=== PATIENT | female | born 1995 | race Caucasian/White ===

== ENCOUNTER 2017-10-16 16:10 | Emergency (ER) | payer OTHER ==
[~2017-10-16] VITALS: Ht 165.1 cm; Wt 60.1 kg
[2017-10-16 16:15] VITALS: TEMP 36.3; Ht 165.1 cm; Wt 60.1 kg
[2017-10-16] MEDS ORDERED: ONDANSETRON INJ 2 MG/ML 2 ML VIAL IV STA ×2 (17:28→19:34)
[2017-10-16] MEDS ORDERED: SODIUM CHLORIDE 0.9% 1000ML 2,000 ML IV STA (17:28)
[2017-10-16] MEDS ORDERED: PHEN500T PO (17:32)
[2017-10-16 18:11] LABS: BASO % 0.2 %; BASO ABS # 0.02 K/uL (0-0.2); EOS % 0.1 %; EOS ABS # 0.01 K/uL (0-0.5); HEMATOCRIT 42.7 % (37-47); HEMOGLOBIN 14.9 g/dL (12.0-16.0); IG# 0.07 K/uL (0.00-0.02); LYMPH % 9.7 %; LYMPH ABS # 1.25 K/uL (1.2-3.4); MEAN CELL VOLUME 86.3 fL (80-100); MEAN CORPUSCULAR HEMOGLOBIN 30.1 pg (25-34); MEAN CORPUSCULAR HGB CONC 34.9 g/dl (32-36); MONO % 4.2 %; MONO ABS # 0.54 K/uL (0.11-0.59); NEUT % 85.3 %; NEUT ABS # 11.02 K/uL (1.4-6.5); PLATELET COUNT 250 K/uL (130-400); RED CELL DISTRIBUTION WIDTH CV 12.4 % (11.5-14.5); WHITE BLOOD COUNT 12.91 K/uL (4.8-10.8)
[2017-10-16 18:37] LABS: ALBUMIN 4.8 gm/dl (3.4-5.0); ALT/SGPT 32 U/L (12-78); BLOOD UREA NITROGEN 11 mg/dl (7-18); CALCIUM 9.6 mg/dl (8.5-10.1); CARBON DIOXIDE 26 mmol/L (21-32); CREATININE 0.73 mg/dl (0.60-1.20); GLUCOSE 101 mg/dl (70-99); LIPASE 88 U/L (73-393); POTASSIUM 3.2 mmol/L (3.5-5.1); SODIUM 137 mmol/L (136-145)
[2017-10-16 18:40] LABS: ALKALINE PHOSPHATASE 59 U/L (45-117); AST/SGOT 18 U/L (15-37); TOTAL PROTEIN 8.6 gm/dl (6.4-8.2)
--- NOTE | 2017-10-16 18:40 | DIAGNOSTIC IMAGING REPORT ---
ABDOMEN 2VIEW W/PA CHEST RTN CLINICAL HISTORY: vomiting COMPARISON STUDY: No previous studies for comparison. FINDINGS: The erect chest reveals no free air. The heart is normal in size. There is no focal pulmonary consolidation. Erect and supine views the abdomen reveal borderline dilated proximal jejunal loops measuring up to 34 mm in diameter. IMPRESSION: Nonspecific bowel gas pattern with a borderline dilated left upper quadrant jejunal loop measuring 34 mm in diameter. No evidence of free air. Electronically signed by: Davide Martínez M.D. 10/16/2017 6:39 PM Dictated Date/Time: 10/16/2017 6:37 PM
--- NOTE | 2017-10-16 19:27 | DIAGNOSTIC IMAGING REPORT ---
CT SCAN OF THE ABDOMEN AND PELVIS WITHOUT CONTRAST CLINICAL HISTORY: Vomiting. Dilated small bowel. COMPARISON STUDY: Conventional radiographic study dated 10/16/2017 TECHNIQUE: CT scan of the abdomen and pelvis was performed from the lung bases to the proximal femurs. Images are reviewed in the axial, sagittal, and coronal planes. IV contrast was not administered for this examination. A dose lowering technique was utilized adhering to the principles of ALARA. CT DOSE: 274.73 mGy.cm FINDINGS: Lower chest: The heart is normal in size and configuration, without pericardial effusion. The lung bases and pleural spaces are clear. Liver: The unenhanced liver is normal in size, contour, and attenuation. There is no intrahepatic biliary ductal dilatation. Gallbladder: Unremarkable. Spleen: Normal in size and attenuation. Pancreas: Unremarkable. Adrenal glands: Unremarkable. Kidneys: No renal, ureteral, or bladder calculi are visualized. Bowel: There are no transition zones indicate bowel obstruction. There is no acute diverticulitis. The appendix appears normal. Proximal jejunal loops are at the upper limits of normal in diameter. Peritoneum: There is no intraperitoneal free air or abdominal ascites. Vasculature: The abdominal aorta is normal in course and caliber. Adenopathy: None. Pelvic viscera: The bladder, and pelvic viscera are unremarkable. Skeletal structures: No destructive osseous lesions are seen. IMPRESSION: 1. Proximal jejunal loops the upper limits of normal in diameter. This could indicate a mild focal ileus. 2. No current evidence of bowel obstruction. No evidence of free air 3. Normal appendix. No evidence of acute diverticulitis. 4. No renal, ureteral, or bladder calculi identified Electronically signed by: Davide Martínez M.D. 10/16/2017 7:25 PM Dictated Date/Time: 10/16/2017 7:23 PM
[2017-10-16] MEDS ORDERED: ONDA4TAB46 PO (19:37)
[2017-10-16] MEDS ORDERED: ONDANSETRON HOME PACK 4MG OD TAB PO ONE (19:45)
[2017-10-16 20:09] VITALS: BP 120/68; PULSE 91; O2SAT 99
--- NOTE | 2017-10-16 20:14 | EMERGENCY ROOM VISIT NOTE ---
History Report prepared by Anel: Ashley Huerta Under the Supervision of: Saúl MorleyO. First contact with patient: 17:18 Chief Complaint: NAUSEA Stated Complaint: TOOK DIET PILL, NOW SICK TO STOMACH, ANXIOUS Nursing Triage Summary: Patient took a diet pill called Phenalean this afternoon and now can not stop vomitted. History of Present Illness The patient is a 21 year old female who presents to the Emergency Room with complaints of persistent nausea that began earlier today. The patient states that she took a dietary pill (Phenalean), which her boyfriend bought at a pharmacy. She notes that patient contained high amounts of caffeine and that any time she has caffeine she feels sick. The patient has been experiencing shortness of breath, which began about 30 minutes after she took the pill. She notes her last normal menstrual period was 2 weeks ago and her last bowel movement was 2 days ago. Shortness of breath is worsened with the vomiting. Pt denies headache, change in vision, fevers, chest pain, diarrhea, pain with urination, and melena. Patient denies diabetes, hypertension, hyperlipidemia, CAD, history of sudden at a young age, and smoking. Patient denies swelling of calves, recent trips, history of immobilization or recent surgery, prior history of DVT, hemoptysis, history of malignancy, history of smoking, or control/estrogen use. Source of History: patient Onset: today Position: other (global) Quality: other (nausea) Timing: other (persistent) Associated Symptoms: + SOB Review of Systems See HPI for pertinent positives & negatives. A total of 10 systems reviewed and were otherwise negative. Family History Patient reports no known family medical history. Social History Smoking Status: Never Smoker Smokeless Tobacco Use: No Alcohol Use: occasionally Drug Use: none Marital Status: single Housing Status: lives with roommate Occupation Status: student Current/Historical Medications Scheduled Phenylalanine (L-Phenylalanine), Unknown Dose PO DAILY Scheduled PRN Ondansetron Hcl (Zofran), 4 MG PO TID PRN for Nausea Allergies Coded Allergies: No Known Allergies (Unverified , 10/16/17) Physical Exam Vital Signs Date Time Temp Pulse Resp B/P (MAP) Pulse Ox O2 Delivery O2 Flow Rate FiO2 10/16/17 20:09 91 15 120/68 99 10/16/17 18:52 95 16 125/63 99 Room Air 10/16/17 16:15 36.3 92 16 138/87 98 Room Air Physical Exam GENERAL: Sitting up in bed, alert, well appearing, well nourished, no distress, non-toxic EYE EXAM: normal conjunctiva. OROPHARYNX: no exudate, no erythema, lips, buccal mucosa, and tongue normal and mucous membranes are moist NECK: supple, no nuchal rigidity, no adenopathy, non-tender LUNGS: Clear to auscultation. Normal chest wall mechanics HEART: no murmurs, S1 normal and S2 normal ABDOMEN: abdomen soft, non-tender, normo-active bowel sounds, no masses, no rebound or guarding. BACK: Back is symmetrical on inspection and there is no deformity, no midline tenderness, no CVA tenderness. SKIN: no rashes and no bruising UPPER EXTREMITIES: upper extremities are grossly normal. LOWER EXTREMITIES: No pitting edema. NEURO EXAM: Normal sensorium, cranial nerves II-XII grossly intact, normal speech, no gross weakness of arms, no gross weakness of legs. Medical Decision & Procedures ER Provider Diagnostic Interpretation: Radiology results as stated below per my review and the radiologist's interpretation: ABDOMEN 2VIEW W/PA CHEST RTN CLINICAL HISTORY: vomiting COMPARISON STUDY: No previous studies for comparison. FINDINGS: The erect chest reveals no free air. The heart is normal in size. There is no focal pulmonary consolidation. Erect and supine views the abdomen reveal borderline dilated proximal jejunal loops measuring up to 34 mm in diameter. IMPRESSION: Nonspecific bowel gas pattern with a borderline dilated left upper quadrant jejunal loop measuring 34 mm in diameter. No evidence of free air. Electronically signed by: Davide Martínez M.D. 10/16/2017 6:39 PM Dictated Date/Time: 10/16/2017 6:[address] SCAN OF THE ABDOMEN AND PELVIS WITHOUT CONTRAST CLINICAL HISTORY: Vomiting. Dilated small bowel. COMPARISON STUDY: Conventional radiographic study dated 10/16/2017 TECHNIQUE: CT scan of the abdomen and pelvis was performed from the lung bases to the proximal femurs. Images are reviewed in the axial, sagittal, and coronal planes. IV contrast was not administered for this examination. A dose lowering technique was utilized adhering to the principles of ALARA. CT DOSE: 274.73 mGy.cm FINDINGS: Lower chest: The heart is normal in size and configuration, without pericardial effusion. The lung bases and pleural spaces are clear. Liver: The unenhanced liver is normal in size, contour, and attenuation. There is no intrahepatic biliary ductal dilatation. Gallbladder: Unremarkable. Spleen: Normal in size and attenuation. Pancreas: Unremarkable. Adrenal glands: Unremarkable. Kidneys: No renal, ureteral, or bladder calculi are visualized. Bowel: There are no transition zones indicate bowel obstruction. There is no acute diverticulitis. The appendix appears normal. Proximal jejunal loops are at the upper limits of normal in diameter. Peritoneum: There is no intraperitoneal free air or abdominal ascites. Vasculature: The abdominal aorta is normal in course and caliber. Adenopathy: None. Pelvic viscera: The bladder, and pelvic viscera are unremarkable. Skeletal structures: No destructive osseous lesions are seen. IMPRESSION: 1. Proximal jejunal loops the upper limits of normal in diameter. This could indicate a mild focal ileus. 2. No current evidence of bowel obstruction. No evidence of free air 3. Normal appendix. No evidence of acute diverticulitis. 4. No renal, ureteral, or bladder calculi identified Electronically signed by: Davide Martínez M.D. 10/16/2017 7:25 PM Dictated Date/Time: 10/16/2017 7:23 PM Laboratory Results 10/16/17 17:51 Red Blood Count 4.95, Mean Corpuscular Volume 86.3, Mean Corpuscular Hemoglobin 30.1, Mean Corpuscular Hemoglobin Concent 34.9, Mean Platelet Volume 10.0, Neutrophils (%) (Auto) 85.3, Lymphocytes (%) (Auto) 9.7, Monocytes (%) (Auto) 4.2, Eosinophils (%) (Auto) 0.1, Basophils (%) (Auto) 0.2, Neutrophils # (Auto) 11.02, Lymphocytes # (Auto) 1.25, Monocytes # (Auto) 0.54, Eosinophils # (Auto) 0.01, Basophils # (Auto) 0.02 10/16/17 17:51 Test 10/16/17 17:51 White Blood Count 12.91 K/uL (4.8-10.8) Red Blood Count 4.95 M/uL (4.2-5.4) Hemoglobin 14.9 g/dL (12.0-16.0) Hematocrit 42.7 % (37-47) Mean Corpuscular Volume 86.3 fL (80-100) Mean Corpuscular Hemoglobin 30.1 pg (25-34) Mean Corpuscular Hemoglobin Concent 34.9 g/dl (32-36) Platelet Count 250 K/uL (130-400) Mean Platelet Volume 10.0 fL (7.4-10.4) Neutrophils (%) (Auto) 85.3 % Lymphocytes (%) (Auto) 9.7 % Monocytes (%) (Auto) 4.2 % Eosinophils (%) (Auto) 0.1 % Basophils (%) (Auto) 0.2 % Neutrophils # (Auto) 11.02 K/uL (1.4-6.5) Lymphocytes # (Auto) 1.25 K/uL (1.2-3.4) Monocytes # (Auto) 0.54 K/uL (0.11-0.59) Eosinophils # (Auto) 0.01 K/uL (0-0.5) Basophils # (Auto) 0.02 K/uL (0-0.2) RDW Standard Deviation 39.0 fL (36.4-46.3) RDW Coefficient of Variation 12.4 % (11.5-14.5) Immature Granulocyte % (Auto) 0.5 % Immature Granulocyte # (Auto) 0.07 K/uL (0.00-0.02) Urine Color YELLOW Urine Appearance CLEAR (CLEAR) Urine pH 7.0 (4.5-7.5) Urine Specific [place] 1.018 (1.000-1.030) Urine Protein NEG (NEG) Urine Glucose (UA) NEG (NEG) Urine Ketones TRACE (NEG) Urine Occult Blood NEG (NEG) Urine Nitrite NEG (NEG) Urine Bilirubin NEG (NEG) Urine Urobilinogen NEG (NEG) Urine Leukocyte Esterase NEG (NEG) Urine WBC (Auto) 1-5 /hpf (0-5) Urine RBC (Auto) 10-30 /hpf (0-4) Urine Hyaline Casts (Auto) 1-5 /lpf (0-5) Urine Epithelial Cells (Auto) >30 /lpf (0-5) Urine Bacteria (Auto) NEG (NEG) Urine Test NEG (NEG) Anion Gap 9.0 mmol/L (3-11) Est Creatinine Clear Calc Drug Dose 110.6 ml/min Estimated GFR () 137.4 Estimated GFR (Non- 118.6 BUN/Creatinine Ratio 15.3 (10-20) Calcium Level 9.6 mg/dl (8.5-10.1) Total Bilirubin 0.4 mg/dl (0.2-1) Direct Bilirubin < 0.1 mg/dl (0-0.2) Aspartate Amino Transf (AST/SGOT) 18 U/L (15-37) Alanine Aminotransferase (ALT/SGPT) 32 U/L (12-78) Alkaline Phosphatase 59 U/L (45-117) Troponin I < 0.015 ng/ml (0-0.045) Total Protein 8.6 gm/dl (6.4-8.2) Albumin 4.8 gm/dl (3.4-5.0) Lipase 88 U/L (73-393) Laboratory results per my review. Medications Administered Medications (Trade) Dose Ordered Sig/Matt Route Start Time Stop Time Status Last Admin Dose Admin Sodium Chloride 2,000 ml @ 999 mls/hr Q2H1M STAT IV 10/16/17 17:28 10/16/17 19:28 DC 10/16/17 17:57 999 MLS/HR Ondansetron HCl (Zofran Inj) 4 mg NOW STAT IV 10/16/17 17:28 10/16/17 17:31 DC 10/16/17 17:57 4 MG Ondansetron HCl (Zofran Inj) 4 mg NOW STAT IV 10/16/17 19:34 10/16/17 19:35 DC 10/16/17 20:02 4 MG Ondansetron HCl (ZOFRAN ODT 4MG Home Pack) 1 homepack UD ONCE PO 10/16/17 19:45 10/16/17 19:46 DC 10/16/17 20:02 1 HOMEPACK ECG Indication: nausea Rate (beats per minute): 86 Rhythm: sinus rhythm Findings: other (normal axis, non specific ST changes in lateral leads) ED Course ED COURSE: Vital signs were reviewed and showed normal vitals. The patients medical record was reviewed The above diagnostic studies were performed and reviewed. ED treatments and interventions as stated above. 1712: The patient was evaluated in room C12. A complete history and physical examination was performed. 1728: Ordered Sodium Chloride 2000 ml @ 999 mls/hr IV and Zofran Inj 4mg. 1802: I reevaluated the patient and updated her on test findings. The patient states that she is feeling slightly better. 1933: Ordered Zofran Inj 4mg IV. 1944: Ordered Ondansetron HCL 1 homepack PO. 1948: Upon reevaluation, the patient states she vomited once but is feeling better. I discussed my findings with the patient and she understands and agrees with the treatment plan. The patient was discharged home. Medical Decision Differential diagnoses includes but is not limited to gastritis, peptic ulcer disease, GERD, gallbladder disease, pancreatitis, small bowel obstruction, acute coronary syndrome, pericarditis, ischemic bowel, irritable bowel disease, irritable bowel syndrome, appendicitis, diverticulitis, malignancy, hernia, urinary tract infection, torsion, [/ectopic (if female)], perforation, trauma, infectious. Patient is a 21-year-old female who presents to ER for vomiting 20 minutes following taking an [id number] supplement. The supplement had a tonic feeling that she notes she normally gets sweaty after drinking drinks which have a large amount of caffeine. CBC shows a white count of 12,000. BMP shows mild hypokalemia at 3.2. Bilirubin all LFTs and troponin was normal. UA was negative. was negative. CT abdomen and pelvis was performed as the instructions. Showed upper limits of normal jejunal loop. This is confirmed on CT but shows no obstruction. Patient did feel better following fluids and Zofran. She'll in vomit once in the ER. She was discharged with Zofran to follow-up as an outpatient. Discussed with Pt concerning signs and symptoms to watch out for. Pt was instructed to follow up with their PCP and discussed with the patient their option to return to the ED at anytime for persistent or worsening symptoms. The appropriate anticipatory guidance and out-patient management, including indications for return to the emergency department, were explained at length to the patient and understood. Medication Reconcilliation Current Medication List: was personally reviewed by me Impression Primary Impression: Nausea & vomiting Additional Impression: Hypokalemia Scribe Attestation The scribe's documentation has been prepared under my direction and personally reviewed by me in its entirety. I confirm that the note above accurately reflects all work, treatment, procedures, and medical decision making performed by me. Departure Information Dispostion Home / Self-Care Prescriptions Ondansetron Hcl (ZOFRAN) 4 Mg Tab 4 MG PO TID Y for Nausea, #20 TAB Prov: BraggJv, DO 10/16/17 Referrals No Doctor, Assigned (PCP) Forms HOME CARE DOCUMENTATION FORM, IMPORTANT VISIT INFORMATION Patient Instructions [facility] Additional Instructions Please follow up with your primary care doctor or if you are a student, [facility] with in the next 24 hours. Any worsening of your symptoms, please return to the ED immediately. This includes any fevers greater than 100.4, worsening pain, chest pain, shortness breath, persistent nausea, vomiting, unable to eat or drink, or any other concerning signs or symptoms from your standpoint. Problem Qualifiers Primary Impression: Nausea & vomiting Vomiting type: unspecified Vomiting Intractability: non-intractable Qualified Codes: R11.2 - Nausea with vomiting, unspecified
== END 2017-10-16 20:08 | disposition home or self-care (01) ==
LOC: C.EDB 16:12 → C.EDC 20:08
DX: R11.2 Nausea with vomiting, unspecified (principal); E87.6 Hypokalemia; R06.02 Shortness of breath